=== PATIENT | male | born 1935 | race Caucasian/White ===

== ENCOUNTER → 2017-03-22 | Outpatient (CLI) | payer OTHER | LOC: BHFA 13:00 | PROVIDERS: ATTEND Internal Medicine Cardiovascular Disease | DX: R06.02 Shortness of breath (principal); I73.9 Peripheral vascular disease, unspecified; I11.9 Hypertensive heart disease without heart failure ==

== ENCOUNTER → 2017-03-29 | Outpatient (CLI) | payer OTHER | LOC: BHFA 14:00 | PROVIDERS: ATTEND Internal Medicine Cardiovascular Disease | DX: R06.00 Dyspnea, unspecified (principal); R94.31 Abnormal electrocardiogram [ECG] [EKG] ==

== ENCOUNTER 2017-04-01 09:29 | Day surgery (SDC) | payer OTHER ==
[2017-04-01] MEDS ORDERED: NS 500 ML IV ONE (09:30)
[2017-04-01] MEDS ORDERED: fentaNYL 100 MCG/2 ML INJ IVP ONE (09:30)
[2017-04-01] MEDS ORDERED: PROPOFOL 200 MG/20 ML VIAL IVP ONE (09:30)
[2017-04-01] MEDS ORDERED: BENZOCAINE UNIT DOSE SPRAY HURRICAINE MM ONE (09:30)
[2017-04-01] MEDS ORDERED: MIDAZOLAM 2 MG/2 ML VIAL IVP ONE (09:30)
[2017-04-01] MEDS ORDERED: ATROPINE SULFATE 1 MG/10 ML SYR ONE (09:33)
--- NOTE | 2017-04-01 09:56 | CPEKG ---
Heart Rate: 111 RR Interval: 541 QRSD Interval: 98 QT Interval: 324 QTC Interval: 441 QRS [place]: -43 T Wave [place]: -29 EKG Severity - ABNORMAL ECG - EKG Impression: ATRIAL FLUTTER, A-RATE 272 EKG Impression: LEFT AXIS DEVIATION EKG Impression: BORDERLINE T ABNORMALITIES, INFERIOR LEADS Electronically Signed By: Kal Perry 01-Apr-2017 19:25:36
[2017-04-01 10:30] LABS: ANION GAP 8 mEq/L (8-16); APTT 28.2 SEC (23.0-38.0); CALCIUM 8.9 mg/dL (8.5-10.4); CARBON DIOXIDE 22 mEq/l (22-31); CHLORIDE 106 mEq/L (97-110); CREATININE 1.7 mg/dL (0.7-1.3); GLOMERULAR FILTRATION RATE 39; GLUCOSE 124 mg/dL (70-100); INR 1.23 (0.83-1.16); MAGNESIUM 2.4 mg/dL (1.6-2.3); POTASSIUM 4.8 mEq/L (3.5-5.2); PROTIME(PATIENT) 15.5 SEC (12.0-15.0); SODIUM 136 mEq/L (134-144)
[2017-04-01] MEDS ORDERED: SUCCINYLCHOLINE CHLORIDE*ANESTHESIA ONLY*200 MG/10 ML SYR IVP ONE (11:10)
[2017-04-01] MEDS ORDERED: LIDOCAINE 1% 5 ML SDV ONE (11:10)
--- NOTE | 2017-04-01 11:31 | CPEKG ---
Heart Rate: 72 RR Interval: 833 P-R Interval: 240 QRSD Interval: 104 QT Interval: 400 QTC Interval: 438 P [place]: 5 QRS [place]: -30 T Wave [place]: 9 EKG Severity - ABNORMAL ECG - EKG Impression: SINUS RHYTHM EKG Impression: FIRST DEGREE AV BLOCK EKG Impression: LEFT AXIS DEVIATION EKG Impression: NONSPECIFIC INTERVENTRICULAR CONDUCTION DELAY EKG Impression: \ Electronically Signed By: Kal Perry 01-Apr-2017 19:20:54
--- NOTE | 2017-04-01 11:52 | CPR ---
[f rep st] NONINVASIVE CARDIAC PROCEDURE REPORT DATE OF PROCEDURE: 04/01/2017 PROCEDURE PERFORMED: Electrical cardioversion. INDICATION: Atrial flutter with rapid ventricular response. CONSENT: Signed. Risks, benefits, and alternatives discussed with patient. TECHNICAL DIFFICULTIES: None. MEDICATIONS USED: Propofol IV per Anesthesia Service in conjunction with transesophageal echo done immediately beforehand. DESCRIPTION OF PROCEDURE: A transesophageal echo immediately beforehand demonstrated no evidence of cardiac thrombi. The patient was initially in atrial flutter with a ventricular rate of 125 beats per minute and a blood pressure of 130/70. With adequate sedation and AP biphasic pads, he received a 225 joule synchronized shock, which converted him to sinus rhythm at 73 beats per minute, with a post cardioversion blood pressure of 103/65. He awoke from sedation with no new neurological defici ts. FINAL IMPRESSIONS: Successful cardioversion of atrial flutter to normal sinus rhythm with synchroni zed single 250 joule shock. COMPLICATIONS: None. /[id number]/MODL
--- NOTE | 2017-04-03 09:03 | ECHO ---
[id number] + + [address] : : [facility] [address] : : [phone] + Transesophageal Echocardiographic Report + ----+ :Name: JONN MCCRAY RStudy Date: 04/01/2017 10:27 AM : : Hospital Admission Number: [id number] Location: CVC: :: 1935 Gender: Male : :Age: 81 yrs Race: WH : :Reason For Study: Eval LV Fx : :History: Pre Cardioversion : + ----+ Left Ventricle Ejection Fraction = 45-50%. Right Ventricle The right ventricle is normal in size and function. Atria Doppler suggests left to right interatrial shunt. No left atrial mass or thrombus visualized. No thrombus is detected in the left atrial appendage. The velocities in the left atrial appendage were .40 cm/sec. Mitral Valve The mitral valve is normal in structure and function. There is no evidence of mitral valve prolapse. There is no mitral valve stenosis. There is mild mitral regurgitation. Tricuspid Valve Normal tricuspid valve. There is trace tricuspid regurgitation. Aortic Valve The aortic valve is trileaflet. There is no aortic stenosis. Trace aortic regurgitation. Pulmonic Valve The pulmonic valve is normal in structure and function. There is no pulmonic valvular regurgitation. Vessels Mild atherosclerotic plaque(s) in the descending aorta. Pericardium There is no pericardial effusion. Conclusion A 2D transesophageal echocardiogram with color flow Doppler was performed. 1)Low normal LV systolic function with a LVEF of 45-50%. 2)Moderate left atrial enlargement. 3)No clots in any four cardiac chambers including LA appendage. PW velocity in YUKI 60cm/sec. 4)Trileaflet AV with no and trivial AI noted. 5)Mild MR without MV prolapse. 6)Mild TR noted. 7)Small left to right shunting PFO seen by color Doppler. IV bubble study negative for early bubbles across septum. Final Reading Physician: Zach Romero electronically signed on 04/03/2017 09:01 AM Ordering Physician: Zach Romero Performed By: Zach Romero
== END 2017-04-01 13:27 | disposition home or self-care (01) ==
LOC: FCATH 09:29
PROVIDERS: ATTEND Internal Medicine Cardiovascular Disease
DX: I48.92 Unspecified atrial flutter (principal); I11.9 Hypertensive heart disease without heart failure; I73.9 Peripheral vascular disease, unspecified; E11.9 Type 2 diabetes mellitus without complications
CPT/HCPCS: J0330; J0461; J2704

== ENCOUNTER → 2017-04-04 | Outpatient (CLI) | payer OTHER | LOC: BHLMT 13:00 | PROVIDERS: ATTEND Internal Medicine Cardiovascular Disease | DX: I48.92 Unspecified atrial flutter (principal) | CPT/HCPCS: 78452; 93017; A9500; J2785 ==

== ENCOUNTER → 2017-04-08 | Outpatient (CLI) | payer OTHER | LOC: BHFA 10:00 | PROVIDERS: ATTEND Internal Medicine Cardiovascular Disease | DX: R06.02 Shortness of breath (principal); I48.92 Unspecified atrial flutter; R73.9 Hyperglycemia, unspecified; N18.9 Chronic kidney disease, unspecified; R94.30 Abnormal result of cardiovascular function study, unspecified ==

== ENCOUNTER 2017-04-15 07:54 | Observation (INO) | payer OTHER ==
[2017-04-15] MEDS ORDERED: DIAZEPAM 5 MG TAB PO ONE (08:02)
[2017-04-15] MEDS ORDERED: ASPIRIN EC 325 MG TAB PO ONE (08:02)
[2017-04-15] MEDS ORDERED: NS 1,000 ML IV ONE (08:02)
[2017-04-15] MEDS ORDERED: FAMOTIDINE 20 MG TAB PO ONE (08:02)
[2017-04-15] MEDS ORDERED: diphenhydrAMINE 25 MG CAP PO ONE (08:02)
--- NOTE | 2017-04-15 08:47 | CPEKG ---
Heart Rate: 63 RR Interval: 952 P-R Interval: 232 QRSD Interval: 116 QT Interval: 428 QTC Interval: 439 P [place]: 11 QRS [place]: -24 T Wave [place]: 12 EKG Severity - ABNORMAL ECG - EKG Impression: SINUS RHYTHM EKG Impression: FIRST DEGREE AV BLOCK EKG Impression: NONSPECIFIC INTRAVENTRICULAR CONDUCTION DELAY Electronically Signed By: Annel Mcconnell 15-Apr-2017 16:42:33
[2017-04-15 09:09] LABS: % IMMATURE GRANULYOCYTES 0.5 % (0.0-1.1); ABSOLUTE IMMATURE GRANULOCYTES 0.04 10^3/uL (0.00-0.10); ADD DIFF? NO; ADD MORPH? NO; ADD SCAN? NO; ATYPICAL LYMPHOCYTE FLAG 0 (0-99); FRAGMENT RBC FLAG 0 (0-99); HEMATOCRIT 39.8 % (40.0-51.0); HEMOGLOBIN 13.9 g/dL (13.7-17.5); LEFT SHIFT FLG 0 (0-99); LIPEMIA HEMOLYSIS FLAG 90 (0-99); MEAN CELL HEMOGLOBIN 31.6 pg (27.9-34.1); MEAN CELL HEMOGLOBIN CONCENTR. 34.9 g/dL (32.4-36.7); MEAN CELL VOLUME 90.5 fL (81.5-99.8); PLATELET CLUMPS FLAG 0 (0-99); PLATELET COUNT 178 10^3/uL (150-400)
[2017-04-15 09:24] LABS: INR 1.05 (0.83-1.16); PROTIME(PATIENT) 13.6 SEC (12.0-15.0)
[2017-04-15 09:30] LABS: ANION GAP 9 mEq/L (8-16); CALCIUM 9.3 mg/dL (8.5-10.4); CARBON DIOXIDE 24 mEq/l (22-31); CHLORIDE 104 mEq/L (97-110); CHOLESTEROL 105 mg/dL (140-220); CREATININE 1.4 mg/dL (0.7-1.3); GLOMERULAR FILTRATION RATE 49; GLUCOSE 100 mg/dL (70-100); HIGH DENSITY LIPOPROTEIN 35 mg/dL (40-65); LDL/HDL RATIO 1.23 RATIO (1.00-3.64); LOW DENSITY LIPOPROTEIN 43 mg/dL (80-100); MAGNESIUM 2.4 mg/dL (1.6-2.3); NON-HIGH DENSITY LIPOPROTEIN 70 mg/dL (90-129); POTASSIUM 4.4 mEq/L (3.5-5.2); SODIUM 137 mEq/L (134-144); TRIGLYCERIDE 138 mg/dL (40-150); VERY LOW DENSITY LIPOPROTEINS 27 mg/dL (8-25)
[2017-04-15] MEDS ORDERED: LIDOCAINE 1% 30 ML SDV ONE (09:36)
[2017-04-15] MEDS ORDERED: fentaNYL 100 MCG/2 ML INJ ONE (09:37)
[2017-04-15] MEDS ORDERED: IOPAMIDOL (ISOVUE-370) 150 ML BTL IV ONE (09:37)
[2017-04-15] MEDS ORDERED: MIDAZOLAM 2 MG/2 ML VIAL ONE (09:37)
[2017-04-15] MEDS ORDERED: IOPAMIDOL (ISOVUE-300) 150 ML BTL ONE (09:51)
[2017-04-15] MEDS ORDERED: ADENOSINE 90 MG/30 ML VIAL IV ONE (10:34)
[2017-04-15] MEDS ORDERED: BIVALIRUDIN 250 MG/5 ML VIAL IV ONE (10:34)
[2017-04-15] MEDS ORDERED: ONDANSETRON 4 MG/2 ML VIAL IVP PRN (12:13)
[2017-04-15] MEDS ORDERED: OXYCODONE/APAP 5/325 TAB PO PRN (12:13)
[2017-04-15] MEDS ORDERED: HYDROCODONE/APAP 5/325 TAB PO PRN (12:13)
[2017-04-15] MEDS ORDERED: ATROPINE SULFATE 1 MG/10 ML SYR IVP PRN (12:13)
[2017-04-15] MEDS ORDERED: NITROGLYCERIN 0.4 MG BTL SL PRN (12:13)
--- NOTE | 2017-04-15 13:06 | CPIP ---
[f rep st] INVASIVE CARDIAC PROCEDURE DATE OF PROCEDURE: 04/15/2017 PROCEDURES: 1. Coronary angiography. 2. Left ventricular end-diastolic pressure. 3. Fractional flow reserve of left anterior descending coronary artery. 4. Abdominal aortography. 5. Left lower extremity angiography via contralateral approach with catheter placed in the left sup erficial femoral artery. 6. Right lower extremity angiography via ipsilateral approach with catheter placed in the right com mon iliac artery. INDICATION: 1. Class 2 dyspnea on exertion concerning for an anginal equivalent. 2. High risk abnormal nuclear stress test. 3. Lifestyle limiting leg pain consistent with claudication. ACCESS: Patient was prepped and draped in sterile fashion. 1% lidocaine was used to anesthetize th e right inguinal region. A 6-[place] introducer sheath was placed selectively into the right common femoral artery via a modified Seldinger technique. CORONARY ANGIOGRAPHY: A 6-[place] JL4 was advanced to left main coronary artery and images obtained. The left main coronary artery bifurcated into LAD and circumflex coronary arteries. The left main coronary artery had a distal 10% stenosis present. The left anterior descending coronary artery ga ve rise to 3 diagonal branches. The left anterior descending coronary artery is diffusely diseased. In the proximal segment of the left anterior descending coronary artery, there was a segmental 20% stenosis present. In the mid one segment of the left anterior descending coronary artery, there wa s a discrete 60% to 70% stenosis present. In the mid 2 segment of the left anterior descending china nary artery, there is a discrete 50% stenosis present. The diagonal arteries were free of any signi ficant disease. The circumflex coronary artery was a large vessel and was dominant. The circumflex coronary artery had mild diffuse disease throughout. There was no stenosis greater than 20%. The first OM artery was a large vessel. The first OM artery had a proximal 40% stenosis present. A 6-F rench JR4 was advanced to the right coronary artery and images obtained. The right coronary artery is nondominant. The right coronary artery had a long segmental 85% stenosis in the midvessel. Left ventricular end-diastolic pressure catheter was placed in the left ventricle and pressure obtained. LEFT VENTRICULAR END-DIASTOLIC PRESSURE: 17 mmHg. There was no significant gradient on pullback. LEFT VENTRICULOGRAPHY: Not performed in an effort to spare contrast. FFR OF LEFT ANTERIOR DESCENDING CORONARY ARTERY: A 6-[place] JL4 was advanced to the left main coron trixie artery and images obtained. Angiography confirmed the presence of intermediate to high-grade di sease involving the mid left anterior descending coronary artery. An FFR wire was placed in the dis rick vessel and position verified by angiography. IV adenosine was infused and FFR obtained. The FF R was 0.88 indicating no flow limitation. The FFR wire was then withdrawn back to the guide cathete r. The FFR returned at 1.02 indicating no significant drift. ABDOMINAL AORTOGRAPHY: A 6-[place] pigtail catheter was placed in the abdominal aorta and position v erified by angiography. Images were obtained via power injection through the [employer] system. There was a single left renal artery and a single right renal artery. The left renal artery appeared to h ave a proximal 20% stenosis present. The right renal artery is free of any significant disease. Th e distal abdominal aorta was tortuous and had mild diffuse disease throughout. There was no stenosi s greater than 15%. The distal abdominal aorta was then bifurcated into the left and right common iliac arteries. The l eft common iliac artery was ectatic. The left common iliac artery then bifurcated into the internal and external iliac arteries. The left internal and external iliac arteries appeared free of any si gnificant disease. The left external iliac artery then turned into the common femoral artery. The common femoral artery is free of any significant disease. The common femoral artery then bifurcated into the superficial femoral artery and profunda femoral arteries. A Contra II catheter was advanc ed to the left common iliac artery and a glidewire advanced into the left superficial femoral artery . The Contra II catheter was then exchanged for a straight flush catheter. The straight flush cath eter was used to image the distal superficial femoral artery, the popliteal artery as well as the ru noff below the knee. The left superficial femoral artery had mild luminal regularities throughout. There was no stenosis greater than 10%. The left superficial femoral artery then turned into the p opliteal artery. The popliteal artery had a discrete 30% stenosis present. Below the knee, there i s 3-vessel runoff. RIGHT LOWER EXTREMITY ANGIOGRAPHY VIA IPSILATERAL APPROACH WITH CATHETER PLACED IN THE RIGHT COMMON ILIAC ARTERY: The straight flush catheter was withdrawn into the right common iliac artery and imag es obtained via hand injection. The right common iliac artery bifurcated into the internal and exte rnal iliac arteries. The right common iliac artery had mild luminal irregularities throughout. The re was no stenosis greater than 10%. The right internal iliac artery had a discrete 30% stenosis in the proximal segment. The right external iliac artery was free of any significant disease. The ri ght external iliac artery then turned into the common femoral artery. The common femoral artery had a single discrete 20% stenosis present. The remainder of the right lower extremity angiography was performed via hand injection through the 6-[place] introducer sheath placed in the common femoral ar marcio. The right common femoral artery bifurcated into the superficial femoral artery and profunda f emoral arteries. The profunda femoral artery is free of any significant disease. The right superfi cial femoral artery had mild diffuse disease throughout. There was no stenosis greater than 20%. T he right superficial femoral artery then turned into the popliteal artery. The popliteal artery was free of any significant disease. Below the knee, there is 3-vessel runoff. COMPLICATIONS: None. CONCLUSION: 1. 2-vessel coronary artery disease involving the left anterior descending coronary artery and a no ndominant right coronary artery. Fractional flow reserve of the left anterior descending coronary a rtery was 0.88 indicating no flow limitation. 2. Mild peripheral vascular disease without flow limitation. /[id number]/MODL
[2017-04-15] MEDS: CARVEDILOL 25 MG TAB PO SCH (18:03)
[2017-04-15] MEDS ORDERED: ATORVASTATIN CALCIUM 40 MG TAB PO SCH (21:00)
[2017-04-15] MEDS ORDERED: INSULIN GLARGINE 100 UNITS/ML SYRINGE SC SCH (21:00)
[2017-04-15] MEDS ORDERED: LOSARTAN POTASSIUM 50 MG TAB PO SCH (21:00)
[2017-04-15] MEDS: glipiZIDE 10 MG TAB PO SCH (21:23)
[2017-04-16] MEDS ORDERED: LEVOTHYROXINE 50 MCG TAB PO SCH (06:00)
[2017-04-16 06:04] VITALS: RESP 19
[2017-04-16 07:53] VITALS: BP 115/58; PULSE 63; TEMP 98; O2SAT 97
[2017-04-16] MEDS: glipiZIDE 10 MG TAB PO SCH (08:43)
[2017-04-16] MEDS: CARVEDILOL 25 MG TAB PO SCH (08:44)
[2017-04-16] MEDS ORDERED: ASPIRIN 81 MG CHEWABLE TAB PO SCH (09:00)
[2017-04-16] MEDS ORDERED: CHOLECALCIFEROL VIT D3 1,000 UNITS TAB PO SCH (09:00)
[2017-04-16] MEDS ORDERED: ASCORBIC ACID 500 MG TAB PO SCH (09:00)
[2017-04-16] MEDS ORDERED: MULTIVITAMINS 1 EACH TAB PO SCH (09:00)
[2017-04-16] MEDS ORDERED: SPIRONOLACTONE 25 MG TAB PO SCH (09:00)
[2017-04-16] MEDS ORDERED: LIRAGLUTIDE 1.8 MG SQ SCH (09:00)
[2017-04-16] MEDS ORDERED: DILTIAZEM CD 180 MG CAP PO SCH (09:00)
[2017-04-16] MEDS ORDERED: CYANO/VITAMIN B12 1000 MCG TAB PO SCH (09:00)
[2017-04-16] MEDS ORDERED: NON-FORMULARY NEW DRUG (Diltiazem Hcl [Cartia Xt 180mg] 180 MG) PO SCH (09:00)
[2017-04-16 09:55] LABS: % IMMATURE GRANULYOCYTES 0.5 % (0.0-1.1); ABSOLUTE IMMATURE GRANULOCYTES 0.05 10^3/uL (0.00-0.10); ADD DIFF? NO; ADD MORPH? NO; ADD SCAN? NO; ATYPICAL LYMPHOCYTE FLAG 0 (0-99); FRAGMENT RBC FLAG 0 (0-99); HEMATOCRIT 34.9 % (40.0-51.0); HEMOGLOBIN 11.7 g/dL (13.7-17.5); LEFT SHIFT FLG 0 (0-99); LIPEMIA HEMOLYSIS FLAG 80 (0-99); MEAN CELL HEMOGLOBIN 31.5 pg (27.9-34.1); MEAN CELL HEMOGLOBIN CONCENTR. 33.5 g/dL (32.4-36.7); MEAN CELL VOLUME 93.8 fL (81.5-99.8); PLATELET CLUMPS FLAG 0 (0-99); PLATELET COUNT 158 10^3/uL (150-400); RED BLOOD CELL COUNT 3.72 10^6/uL (4.40-6.38); RED CELL DISTRIBUTION WIDTH 14.4 % (11.5-15.2)
[2017-04-16 11:44] LABS: ANION GAP 7 mEq/L (8-16); CALCIUM 8.4 mg/dL (8.5-10.4); CARBON DIOXIDE 23 mEq/l (22-31); CHLORIDE 102 mEq/L (97-110); CREATININE 1.3 mg/dL (0.7-1.3); GLOMERULAR FILTRATION RATE 53; GLUCOSE 153 mg/dL (70-100); POTASSIUM 4.5 mEq/L (3.5-5.2); SODIUM 132 mEq/L (134-144)
[2017-04-17] MEDS ORDERED: LIRAGLUTIDE 1.8 MG SQ SCH (09:00)
--- NOTE | 2017-04-17 11:27 | GDS ---
[f rep st] DISCHARGE SUMMARY DISCHARGE DIAGNOSES: 1. Abnormal nuclear stress test, status post left heart catheterization which showed no obstructive coronary disease. 2. Claudication-like symptoms without evidence of obstructive disease based on peripheral angiograp hy. 3. Type 2 diabetes mellitus. 4. Obesity with a BMI of 41. 5. Chronic kidney disease with baseline creatinine 1.7. 6. Spinal stenosis. 7. Hypertension. 8. Systolic congestive heart failure with now likely nonischemic cardiomyopathy, with an EF of 47%. 9. Atrial flutter with recent cardioversion, currently in sinus rhythm at time of discharge. 10. Groin hematoma, without overt bleeding on day of discharge. PROCEDURES: Coronary angiography with an LVEDP, fractional flow reserve of LAD, abdominal aortograp hy, and left and right lower extremity angiography. Findings of left main with distal 10% stenosis, LAD with 3 diagonal branches. In the proximal LAD there was a 20% segmental stenosis. In the mid 1 segment of the LAD there was a 60% to 70% stenosis. In the mid 2 segment of the LAD there was a d iscrete 50% stenosis. The left circumflex had mild diffuse disease throughout it with no stenosis g reater than 20%. The first OM had a proximal 40% stenosis. The RCA had a long segmental 85% stenos is in the mid vessel. LVEDP was obtained and was 17 mmHg. No LV gram was done. FFR of the mid LAD was 0.88, indicating no flow limitation. Abdominal angiography showed left renal artery with proxi mal 20% stenosis. Distal abdominal aorta was tortuous and mild diffuse disease throughout. There w as mild peripheral vascular disease with no stenosis greater than 20% to 30%. BRIEF HISTORY: Please see dictated H and P by Dr. Romero for complete details. In brief, the patien t is an 81-year-old male with hypertension, type 2 diabetes mellitus, spinal stenosis, chronic kidne y disease, recurrent atrial flutter, systolic CHF with an EF of 47%. He had a Lexiscan stress test with inferior and anterior ischemia. He also notes symptoms of tightness in his legs with exertion at 0.5 blocks, with right greater than left leg symptoms. He proceeded to angiography for further e valuation. HOSPITAL COURSE BY PROBLEM: 1. Abnormal nuclear stress test. He had no flow-limiting disease based on heart catheterization. 2. Concern for peripheral vascular disease due to claudication. There is no evidence of flow-limit ing disease in his lower extremities. 3. Chronic kidney disease. His creatinine on day of discharge was 1.3 after IV hydration. 4. Dyslipidemia. LDL is 43 on treatment. 5. Type 2 diabetes mellitus. His blood sugars have been well controlled. 6. Groin hematoma. His hemoglobin was 11.7 on day of discharge, down from 13.9 on the day of admis mindy. This is likely related to hydration as opposed to acute blood loss. PHYSICAL EXAMINATION: VITAL SIGNS: On day of discharge, blood pressure of 115/58, heart rate 63, r espirations 19, O2 saturation 97% on room air. GENERAL: He is a very pleasant male in no apparent distress. EYES: PERRL. HEART: Regular rate and rhythm. LUNGS: Clear to auscultation. EXTREMIT IES: Right groin site with severe ecchymoses into his scrotum. LABORATORY DATA: CBC with WBC 9.16, hemoglobin 11.7, hematocrit 34.9, platelet count 158. BMP with sodium 132, potassium 4.5, chloride 102, CO2 23, BUN 28, creatinine 1.3, glucose 153. Total choles terol 105, LDL 43, HDL of 35, triglycerides 138. RESULTS PENDING: None. DIET: Cardiac and diabetic diet recommended. ACTIVITY: Groin precautions were reviewed. DISCHARGE MEDICATIONS: Please see med reconciliation for complete details. He is being discharged on his home vitamin C, diltiazem, vitamin B12, vitamin D3, carvedilol, PreserVision, atorvastatin, a spirin, apixaban, levothyroxine, insulin, insulin lispro and insulin glargine, glipizide, torsemide, spironolactone, multivitamin, losartan, and Victoza. DISCHARGE INSTRUCTIONS: 1. Groin precautions for 1 week. 2. Follow up with Dr. Romero as scheduled in clinic. /[id number]/MODL
== END 2017-04-16 15:06 | disposition home or self-care (01) ==
LOC: FCATH 07:54 → F2W 15:18
PROVIDERS: ADMIT Internal Medicine Cardiovascular Disease; ATTEND Internal Medicine Cardiovascular Disease
PROC: 4A1335C Monitoring of Arterial Flow, Coronary, Percutaneous Approach (ICD-10-PCS; principal; 2017-04-15)
PROC: B2151ZZ Fluoroscopy of Left Heart using Low Osmolar Contrast (ICD-10-PCS; principal; 2017-04-15)
PROC: 04HL33Z Insertion of Infusion Device into Left Femoral Artery, Percutaneous Approach (ICD-10-PCS; principal; 2017-04-15)
PROC: B2111ZZ Fluoroscopy of Multiple Coronary Arteries using Low Osmolar Contrast (ICD-10-PCS; principal; 2017-04-15)
PROC: 04HC33Z Insertion of Infusion Device into Right Common Iliac Artery, Percutaneous Approach (ICD-10-PCS; principal; 2017-04-15)
PROC: B41GYZZ Fluoroscopy of Left Lower Extremity Arteries using Other Contrast (ICD-10-PCS; principal; 2017-04-15)
PROC: B41FYZZ Fluoroscopy of Right Lower Extremity Arteries using Other Contrast (ICD-10-PCS; principal; 2017-04-15)
PROC: 4A023N7 Measurement of Cardiac Sampling and Pressure, Left Heart, Percutaneous Approach (ICD-10-PCS; principal; 2017-04-15)
DX: R94.30 Abnormal result of cardiovascular function study, unspecified (principal); M79.604 Pain in right leg; M79.605 Pain in left leg; I25.10 Atherosclerotic heart disease of native coronary artery without angina pectoris; I97.630 Postprocedural hematoma of a circulatory system organ or structure following a cardiac catheterization; R06.02 Shortness of breath; E11.22 Type 2 diabetes mellitus with diabetic chronic kidney disease; N18.9 Chronic kidney disease, unspecified; I70.1 Atherosclerosis of renal artery; M48.00 Spinal stenosis, site unspecified; I13.0 Hypertensive heart and chronic kidney disease with heart failure and stage 1 through stage 4 chronic kidney disease, or unspecified chronic kidney disease; I50.22 Chronic systolic (congestive) heart failure; I48.92 Unspecified atrial flutter; E78.5 Hyperlipidemia, unspecified; E66.9 Obesity, unspecified; Z68.41 Body mass index [BMI] 40.0-44.9, adult; Z79.4 Long term (current) use of insulin
CPT/HCPCS: 75630; 75716; 93005; 93458; 93571; C1769; C1887; J0153; J0583; J1644; J1815; J2250; J3010; Q9967; J0461

== ENCOUNTER → 2017-05-01 | Outpatient (CLI) | payer OTHER ==
[2017-05-01 18:09] LABS: ALBUMIN 4.2 g/dL (3.5-5.0); BILIRUBIN,TOTAL 1.1 mg/dL (0.1-1.4); BILIRUBIN-CONJUGATED 0.3 mg/dL (0.0-0.5); BILIRUBIN-UNCONJUGATED 0.8 mg/dL (0.0-1.1); TOTAL PROTEIN 6.6 g/dL (6.3-8.2)
== END ==
LOC: FLAB 17:23
PROVIDERS: ATTEND Internal Medicine Cardiovascular Disease
DX: I48.92 Unspecified atrial flutter (principal)

== ENCOUNTER 2017-05-16 14:48 | Day surgery (SDC) | payer OTHER ==
[2017-05-16] MEDS ORDERED: fentaNYL 100 MCG/2 ML INJ IVP ONE (14:58)
[2017-05-16] MEDS ORDERED: PROPOFOL 200 MG/20 ML VIAL IVP ONE (14:58)
[2017-05-16] MEDS ORDERED: BENZOCAINE UNIT DOSE SPRAY HURRICAINE MM ONE (14:58)
[2017-05-16] MEDS ORDERED: MIDAZOLAM 2 MG/2 ML VIAL IVP ONE (14:58)
[2017-05-16] MEDS ORDERED: NS 500 ML IV ONE (14:58)
[2017-05-16] MEDS ORDERED: ATROPINE SULFATE 1 MG/10 ML SYR ONE (15:27)
[2017-05-16] MEDS ORDERED: METOCLOPRAMIDE 10 MG/2 ML VIAL ONE (15:30)
[2017-05-16 15:39] LABS: INR 1.24 (0.83-1.16); PROTIME(PATIENT) 15.6 SEC (12.0-15.0)
[2017-05-16 15:40] LABS: APTT 28.2 SEC (23.0-38.0)
[2017-05-16 15:49] LABS: ANION GAP 12 mEq/L (8-16); CALCIUM 9.2 mg/dL (8.5-10.4); CARBON DIOXIDE 20 mEq/l (22-31); CHLORIDE 104 mEq/L (97-110); CREATININE 1.7 mg/dL (0.7-1.3); GLOMERULAR FILTRATION RATE 39; GLUCOSE 61 mg/dL (70-100); MAGNESIUM 2.5 mg/dL (1.6-2.3); POTASSIUM 4.2 mEq/L (3.5-5.2); SODIUM 136 mEq/L (134-144)
--- NOTE | 2017-05-16 16:02 | CPEKG ---
Heart Rate: 63 RR Interval: 952 P-R Interval: 252 QRSD Interval: 114 QT Interval: 440 QTC Interval: 451 P [place]: -1 QRS [place]: -26 T Wave [place]: 50 EKG Severity - ABNORMAL ECG - EKG Impression: SINUS RHYTHM EKG Impression: FIRST DEGREE AV BLOCK EKG Impression: NONSPECIFIC INTRAVENTRICULAR CONDUCTION DELAY Electronically Signed By: Diego Merchant 16-May-2017 17:11:04
--- NOTE | 2017-05-17 07:55 | EPPROC ---
Electrophysiology Procedure Note: Procedure: CV Indication: Symptomatic AF Procedure: Pt underwent SHELLEY and no LA clots were found. (dictated separately). Pt was then sedated further by anesthesiologist. Once sedated, pt underwent synchronized DCCV at 200J. Pt successfully converted to sinus rhythm. Conclusion: Successful DCCV Patient Problems: Problems Problem Status Onset CHF (congestive heart failure) Acute
== END 2017-05-16 18:29 | disposition home or self-care (01) ==
LOC: FCATH 14:48
PROVIDERS: ATTEND Internal Medicine Cardiovascular Disease
PROC: 5A2204Z Restoration of Cardiac Rhythm, Single (ICD-10-PCS; principal; 2017-05-16)
PROC: B245ZZ4 Ultrasonography of Left Heart, Transesophageal (ICD-10-PCS; principal; 2017-05-16)
DX: I48.92 Unspecified atrial flutter (principal); I25.10 Atherosclerotic heart disease of native coronary artery without angina pectoris; I10 Essential (primary) hypertension; I42.9 Cardiomyopathy, unspecified
CPT/HCPCS: J0461; J2250; J2704; J2765

== ENCOUNTER → 2017-07-04 | Outpatient (CLI) | payer OTHER | LOC: BHFA 13:00 | PROVIDERS: ATTEND Internal Medicine Cardiovascular Disease | DX: Z79.899 Other long term (current) drug therapy (principal) ==

== ENCOUNTER 2017-07-22 06:49 | Observation (INO) | payer OTHER ==
[2017-07-22] MEDS ORDERED: NS 1,000 ML IV ONE (06:50)
[2017-07-22] MEDS ORDERED: MIDAZOLAM 2 MG/2 ML VIAL IVP ONE (06:50)
--- NOTE | 2017-07-22 07:28 | CPEKG ---
Heart Rate: 115 RR Interval: 522 QRSD Interval: 120 QT Interval: 344 QTC Interval: 476 QRS [place]: -30 T Wave [place]: 71 EKG Severity - ABNORMAL ECG - EKG Impression: A-FLUTTER W/ PREDOM 2:1 AV BLOCK, A-RATE 254 EKG Impression: NONSPECIFIC INTRAVENTRICULAR CONDUCTION DELAY Electronically Signed By: Diego Merchant 22-Jul-2017 08:04:05
[2017-07-22] MEDS ORDERED: LIDOCAINE 1% 300 MG/30 ML SDV ONE (07:31)
[2017-07-22] MEDS ORDERED: HEPARIN 10,000 UNIT/10 ML MDV ONE (07:32)
[2017-07-22] MEDS ORDERED: BUPIVACAINE 0.5% 30 ML SDV ONE (07:32)
[2017-07-22] MEDS ORDERED: ISOPROTERENOL HCL/D5W 0.2 MG/50 ML BAG IV ONE (07:32)
[2017-07-22 07:46] LABS: % IMMATURE GRANULYOCYTES 1.2 % (0.0-1.1); ABSOLUTE IMMATURE GRANULOCYTES 0.08 10^3/uL (0.00-0.10); ADD DIFF? NO; ADD MORPH? NO; ADD SCAN? NO; ATYPICAL LYMPHOCYTE FLAG 10 (0-99); FRAGMENT RBC FLAG 0 (0-99); HEMATOCRIT 37.3 % (40.0-51.0); HEMOGLOBIN 12.7 g/dL (13.7-17.5); LEFT SHIFT FLG 10 (0-99); LIPEMIA HEMOLYSIS FLAG 90 (0-99); MEAN CELL HEMOGLOBIN 32.9 pg (27.9-34.1); MEAN CELL VOLUME 96.6 fL (81.5-99.8); MEAN PLATELET VOLUME 9.8 fL (8.7-11.7); PLATELET CLUMPS FLAG 0 (0-99); PLATELET COUNT 153 10^3/uL (150-400); RED BLOOD CELL COUNT 3.86 10^6/uL (4.40-6.38); RED CELL DISTRIBUTION WIDTH 12.9 % (11.5-15.2)
[2017-07-22 07:56] LABS: INR 1.07 (0.83-1.16); PROTIME(PATIENT) 13.8 SEC (12.0-15.0)
[2017-07-22 07:57] LABS: ANION GAP 10 mEq/L (8-16); APTT 33.3 SEC (23.0-38.0); CARBON DIOXIDE 22 mEq/l (22-31); CHLORIDE 105 mEq/L (97-110); CREATININE 1.7 mg/dL (0.7-1.3); GLOMERULAR FILTRATION RATE 39; GLUCOSE 116 mg/dL (70-100); MAGNESIUM 2.3 mg/dL (1.6-2.3); POTASSIUM 4.4 mEq/L (3.5-5.2); SODIUM 137 mEq/L (134-144)
--- NOTE | 2017-07-22 08:24 | PDANEPAE ---
ANE Past Medical History - Pulmonary History Hx Oxygen in Use at Home: No Hx Sleep Apnea: Yes - Endocrine History Hx Diabetes: Yes - Chronic Pain History Chronic Pain: No ANE Patient History - Allergies Allergies/Adverse Reactions: hydrocodone Allergy (Verified 04/01/17 10:54) Vomiting/Nausea - Home Medications Home Medications: Apixaban [Eliquis] 2.5 mg PO BID 04/01/17 [Last Taken 07/19/17 21:00] Aspirin [Aspirin 81mg (*)] 81 mg PO DAILY 04/01/17 [Last Taken 07/21/17] Atorvastatin Calcium [Lipitor 40 mg (*)] 40 mg PO HS 04/01/17 [Last Taken ] Carvedilol [Coreg (*)] 25 mg PO BIDMEAL 04/01/17 [Last Taken 07/21/17 21:00] Cholecalciferol Vit D3 [Vitamin D3 (*)] 1,000 units PO DAILY 04/01/17 [Last Taken 07/21/17] Cyanocobalamin [Vitamin B12 (*)] 1,000 mcg PO DAILY 04/01/17 [Last Taken ] Diltiazem HCl [Cartia XT 180mg] 180 mg PO DAILY 04/01/17 [Last Taken 07/21/17] Herbals/Supplements -Info Only 1 ea PO DAILY 04/01/17 [Last Taken Unknown] Insulin Glargine [Lantus 100 UNITS/ML (*)] 40 units SC HS 04/01/17 [Last Taken 07/21/17 30 units] Levothyroxine [Synthroid 50 mcg (*)] 50 mcg PO DAILY06 04/01/17 [Last Taken ] Liraglutide [Victoza 3-Ronald] 1.8 mg SQ HS 04/01/17 [Last Taken 07/20/17] Losartan Potassium [Cozaar 50 mg (*)] 50 mg PO DAILY 04/01/17 [Last Taken ] Spironolactone [Aldactone 25 MG (*)] 25 mg PO DAILY 04/01/17 [Last Taken ] Torsemide [Demadex] 20 mg PO DAILY 04/01/17 [Last Taken 07/21/17] glipiZIDE [Glipizide] 10 mg PO DAILY 04/01/17 [Last Taken 07/21/17] C/E/Zn/Cu/OM3/DHA/EPA/LUT/ZEAX [Preservision Areds 2 Softgel] 1 - 2 each PO BID 04/15/17 [Last Taken 07/21/17 21:00] Multivitamins [Multivitamin (*)] 1 each PO DAILY 04/15/17 [Last Taken 07/21/17] Amiodarone HCl [Pacerone (*)] 200 mg PO DAILY 05/16/17 [Last Taken 07/21/17] Enoxaparin [Lovenox 100 MG (*)] 100 mg SQ 1000,2200 07/22/17 [Last Taken 22:00] - Smoking Hx Smoking Status: Never smoked ANE Labs/Vital Signs - Labs Result Diagrams: 07/22/17 07:35 07/22/17 07:35 - Vital Signs Height: 170 cm Weight: 115.2 kg ANE Physical Exam - Airway Neck exam: spinal fusion, increased neck circumference, short neck Mallampati Score: Class 3 Mouth exam: poor dentition, lott - Pulmonary Pulmonary: reduced air movement - Cardiovascular Cardiovascular: irregularly irregular - ASA Status ASA Status: III ANE Anesthesia Plan Anesthesia Plan: general endotracheal anesthesia
[2017-07-22] MEDS ORDERED: PROPOFOL 200 MG/20 ML VIAL ONE (08:40)
[2017-07-22] MEDS ORDERED: LIDOCAINE 2% 100 MG/5 ML SYR ONE (08:40)
[2017-07-22] MEDS ORDERED: ROCURONIUM 50 MG/5 ML VIAL ONE (08:40)
[2017-07-22] MEDS ORDERED: fentaNYL 100 MCG/2 ML INJ ONE (08:40)
--- NOTE | 2017-07-22 08:43 | PDHPUP ---
History & Physical Update H&P update statement: This history and physical update is based on an assessment of the patient which was completed after admission or registration (within 24 hours), but prior to the surgery/procedure. H&P update: H&P reviewed & patient examined, no change in patient's condition since H&P completed
[2017-07-22] MEDS ORDERED: PHENYLEPHRINE 10 MG/ML SDV ONE (08:47)
[2017-07-22] MEDS ORDERED: ACETAMINOPHEN 325 MG TAB PO PRN (11:22)
[2017-07-22] MEDS ORDERED: ONDANSETRON 4 MG/2 ML VIAL IVP PRN ×2 (11:22→11:42)
[2017-07-22] MEDS ORDERED: PROTAMINE SULFATE 50 MG/5 ML VIAL IVP ONE (11:26)
--- NOTE | 2017-07-22 11:32 | EPPROC ---
Electrophysiology Procedure Note: ELECTROPHYSIOLOGIC STUDY AND CATHETER MEDIATED ABLATION FOR SUBEUSTACHIAN ISTHMUS DEPENDENT COUNTERCLOCKWISE ATRIAL FLUTTER: INDICATION: Recurrent atrial flutter with nonischemic cardiomyopathy Failed DCCV and amiodarone Also has documented AFIB this will be treated with amiodarone post ablation, and if recurrent, consider BiV PM and AV node ablation PROCEDURES PERFORMED: 69831-54 EP evaluation with RA/RV/LA pace/record, with arrhythmia induction 48477-60 EP evaluation with RA/RV pace record, insert/reposition catheter, with arrhythmia induction 88117 SVT ablation 42248 3D mapping Fluoroscopy Catheters & Anesthesia: The patient arrived in the Electrophysiology Laboratory in the fasting state. The right clavicular region, right groin, and left groin area were prepped and draped in the usual sterile manner. Anesthesiologist Dr. Marivel Dempsey administered general anesthesia. Appropriate non-invasive blood pressure, pulse oximetry and end-tidal CO2 monitoring was established. All catheters were placed percutaneously using the modified Seldinger technique , and advanced into position under fluoroscopic guidance. One #7 Australian deflectable octapolar electrode catheter was advanced to the His-bundle position via the R femoral vein and then into the CS. One # 7 [place] Halo catheter was inserted through the R femoral vein and was placed at the tricuspid annulus. Heparin was administered to keep ACT > 250 seconds. Programmed stimulation was performed from the right atrium, coronary sinus ( left atrium) and right ventricle. On arrival to the Electrophysiology Laboratory the patient was in atrial flutter , CL 240 ms. Entrainment mapping from lateral TA, septal TA, proximal CS and distal CS confirmed cavotricuspid isthmus dependent atrial flutter. In preparation for ablation of typical atrial flutter, a high-resolution 3D (3 dimensional) Carto electroanatomical map of the sub-Eustachian isthmus and right atrium was obtained during atrial flutter. For ablation of typical atrial flutter, one #8.5 Australian SR0 sheath was placed in the right atrium. A #8 [place] deflectable quadrapolar electrode catheter ( 2mm-5mm-2mm spacing) with 3.5 mm irrigated tip electrode and location sensor for the [employer] mapping system was inserted in the long sheath and advanced to the right atrium. Radiofrequency applications were applied between the tricuspid annulus at 0630 oclock as seen in the LAURA view and the inferior vena cava. 8 mm catheter had to be used in mid CT isthmus for better contact. This achieved termination of AFL followed by conduction block across the isthmus. Following ablation of the atrial flutter, programmed atrial stimulation was performe. No atrial arrhythmias were inducible post ablation. Post ablation, a high-resolution electroanatomical map of the sub-Eustachian isthmus was obtained during pacing of the posterolateral coronary sinus. This confirmed conduction block across the sub-Eustachian isthmus. Bidirectional block was also confirmed by pacing. The catheters were removed. Long sheath was changed to short 9Fr sheath. Protamine was administered. The patient was transferred to the cardiovascular holding area in stable condition. Vascular access sheaths were removed in the holding area. There were no apparent complications. CONCLUSIONS: 1. 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 2. Successful catheter mediated ablation of cavotricuspid isthmus achieving bi -directional conduction block across cavotricuspid isthmus. 3. No atrial arrhythmias inducible post ablation. 4. Continue amiodarone for atrial fibrillation. 5. No apparent complications. Patient Problems: Problems Problem Status Onset CHF (congestive heart failure) Acute
[2017-07-22] MEDS ORDERED: ATROPINE SULFATE 1 MG/10 ML SYR ONE (11:37)
[2017-07-22] MEDS ORDERED: NALOXONE HCL 0.4 MG/ML INJ IVP PRN (11:42)
[2017-07-22] MEDS ORDERED: fentaNYL 100 MCG/2 ML INJ IVP PRN (11:42)
--- NOTE | 2017-07-22 11:42 | POSTANESTH ---
Post Anesthetic Evaluation Cardiovascular Status: Normal, Stable, Similar to Pre-Op Cond Respiratory Status: Similar to Pre-op Cond. Level of Consciousness/Mental Status: Alert and Oriented Pain Control: Adequate, Prn Tx Ordered Nausea/Vomiting Control: Adequate, Prn Tx Ordered Complications Possibly Related to Anesthesia: None Noted
--- NOTE | 2017-07-22 11:55 | CPEKG ---
Heart Rate: 78 RR Interval: 769 P-R Interval: 244 QRSD Interval: 112 QT Interval: 412 QTC Interval: 470 P [place]: 64 QRS [place]: -17 T Wave [place]: 35 EKG Severity - ABNORMAL ECG - EKG Impression: SINUS RHYTHM EKG Impression: FIRST DEGREE AV BLOCK ,YUKI EKG Impression: NONSPECIFIC INTRAVENTRICULAR CONDUCTION DELAY Electronically Signed By: Apolinar Grajeda 22-Jul-2017 16:13:53
[2017-07-22 12:34] LABS: ANION GAP 7 mEq/L (8-16); CALCIUM 8.5 mg/dL (8.5-10.4); CARBON DIOXIDE 23 mEq/l (22-31); CHLORIDE 108 mEq/L (97-110); CREATININE 1.6 mg/dL (0.7-1.3); GLOMERULAR FILTRATION RATE 42; GLUCOSE 74 mg/dL (70-100); MAGNESIUM 2.4 mg/dL (1.6-2.3); POTASSIUM 4.1 mEq/L (3.5-5.2); SODIUM 138 mEq/L (134-144)
[2017-07-22] MEDS: CARVEDILOL 25 MG TAB PO SCH (18:03)
[2017-07-22] MEDS: ENOXAPARIN 80 MG/0.8 ML SYR SC SCH (19:33)
[2017-07-22] MEDS ORDERED: Liraglutide [Victoza 3-Pak] 1.8 MG SQ SCH (21:00)
[2017-07-22] MEDS ORDERED: INSULIN GLARGINE 100 UNITS/ML SYRINGE SC SCH (21:00)
[2017-07-22] MEDS ORDERED: ATORVASTATIN CALCIUM 40 MG TAB PO SCH (21:00)
[2017-07-23 03:45] VITALS: RESP 12
[2017-07-23 04:32] LABS: % IMMATURE GRANULYOCYTES 1.1 % (0.0-1.1); ABSOLUTE IMMATURE GRANULOCYTES 0.07 10^3/uL (0.00-0.10); ADD DIFF? NO; ADD MORPH? NO; ADD SCAN? NO; ATYPICAL LYMPHOCYTE FLAG 10 (0-99); FRAGMENT RBC FLAG 0 (0-99); HEMATOCRIT 33.4 % (40.0-51.0); HEMOGLOBIN 11.1 g/dL (13.7-17.5); LEFT SHIFT FLG 10 (0-99); LIPEMIA HEMOLYSIS FLAG 80 (0-99); MEAN CELL HEMOGLOBIN 32.7 pg (27.9-34.1); MEAN CELL HEMOGLOBIN CONCENTR. 33.2 g/dL (32.4-36.7); MEAN CELL VOLUME 98.5 fL (81.5-99.8); MEAN PLATELET VOLUME 9.8 fL (8.7-11.7); PLATELET CLUMPS FLAG 0 (0-99); PLATELET COUNT 144 10^3/uL (150-400); RED BLOOD CELL COUNT 3.39 10^6/uL (4.40-6.38); RED CELL DISTRIBUTION WIDTH 13.3 % (11.5-15.2)
[2017-07-23 04:41] LABS: INR 1.11 (0.83-1.16); PROTIME(PATIENT) 14.2 SEC (12.0-15.0)
[2017-07-23 05:13] LABS: ANION GAP 7 mEq/L (8-16); CALCIUM 8.3 mg/dL (8.5-10.4); CARBON DIOXIDE 24 mEq/l (22-31); CHLORIDE 105 mEq/L (97-110); CREATININE 1.5 mg/dL (0.7-1.3); GLOMERULAR FILTRATION RATE 45; GLUCOSE 80 mg/dL (70-100); POTASSIUM 4.5 mEq/L (3.5-5.2); SODIUM 136 mEq/L (134-144)
[2017-07-23 05:23] LABS: TROPONIN I 0.557 ng/mL (0.000-0.034)
[2017-07-23 05:25] LABS: CREATINE KINASE-MB FRACTION 3.94 ng/mL (0.00-3.19)
[2017-07-23 05:27] LABS: CK-MB INTERPRETATION POSITIVE (NEGATIVE)
[2017-07-23] MEDS ORDERED: LEVOTHYROXINE 50 MCG TAB PO SCH (06:00)
[2017-07-23] MEDS: ENOXAPARIN 80 MG/0.8 ML SYR SC SCH (08:30)
[2017-07-23] MEDS: CARVEDILOL 25 MG TAB PO SCH (08:31)
--- NOTE | 2017-07-23 08:40 | CPEKG ---
Heart Rate: 73 RR Interval: 822 P-R Interval: 204 QRSD Interval: 116 QT Interval: 424 QTC Interval: 468 P Disputanta: 25 QRS Disputanta: -8 T Wave Disputanta: 45 EKG Severity - ABNORMAL ECG - EKG Impression: SINUS RHYTHM EKG Impression: NONSPECIFIC INTRAVENTRICULAR CONDUCTION DELAY Electronically Signed By: Apolinar Grajeda 23-Jul-2017 08:55:31
[2017-07-23 08:43] VITALS: BP 140/76; PULSE 75; TEMP 97.2; O2SAT 95
[2017-07-23] MEDS ORDERED: glipiZIDE 10 MG TAB PO SCH (09:00)
[2017-07-23] MEDS ORDERED: ASPIRIN 81 MG CHEWABLE TAB PO SCH (09:00)
[2017-07-23] MEDS ORDERED: TORSEMIDE 20 MG TAB PO SCH (09:00)
[2017-07-23] MEDS ORDERED: AMIODARONE HCL 200 MG TAB PO SCH (09:00)
[2017-07-23] MEDS ORDERED: SPIRONOLACTONE 25 MG TAB PO SCH (09:00)
[2017-07-23] MEDS ORDERED: LOSARTAN POTASSIUM 50 MG TAB PO SCH (09:00)
--- NOTE | 2017-07-23 09:08 | ECHO ---
[id number] + + [id number] : : [place] [address] : : [phone] + + Adult Echocardiographic Report + ----+ :Name: PMAMarivelELIZABETHJONN RStudy Date: 07/23/2017 07:42 AM : : Hospital Admission Number: [id number] Location: 201: :: 1935 Gender: Male Height: 66 in : :Age: 81 yrs Race: WH Weight: 253 lb : :Reason For Study: Eval LV Fx : : BSA: 2.2 meters2 : :History: Post EP : + ----+ MMode/2D Measurements \T\ Calculations IVSd: 1.1 cm LVIDd: 4.4 cm FS: 30.6 % Ao root diam: 3.4 cm LVPWd: 1.4 cm LVIDs: 3.1 cm EDV(Teich): 89.9 ml ACS: 1.8 cm ESV(Teich): 37.5 ml EF(Teich): 58.3 % Normal Measurement Values: + + :LVIDd (3.5-5.7cm) IVSd (0.6-1.1cm) LVPWd (0.6-1.1cm) Aortic Root (2.0-3.7cm)Left Atrium (1.5-4.0cm): :LV Vol(d) (76-115ml) LV Vol(s) (29-48ml) Ejec Fraction (50-65%)PV Jaziel (0.6- 1.2m/s) TV Jaziel (0.4-1.0m/s) : :MV E Jaziel (0.8-1.0m/s)MV A Jaziel (0.3-1.0m/s)LVOT Jaziel (0.7-1.2m/s) Asc Ao Jaziel ( 0.9-1.8m/s) : + + Doppler Measurements \T\ Calculations MV E max jaziel: Ao V2 max: LV V1 max: PA V2 max: 108.6 cm/sec 97.7 cm/sec 72.1 cm/sec 80.1 cm/sec MV A max jaziel: Ao max PG: LV V1 max PG: PA max P.9 cm/sec 3.8 mmHg 2.1 mmHg 2.6 mmHg MV E/A: 1.3 LV V1 mean P.1 mmHg LV V1 mean: 46.6 cm/sec LV V1 VTI: 16.2 cm Left Ventricle The left ventricle is normal in size. There is normal left ventricular wall thickness. The left ventricular ejection fraction is normal. There is Doppler evidence for diastolic dysfunction. Ejection Fraction = 55-60%. No regional wall motion abnormalities noted. Right Ventricle The right ventricle is normal in size and function. Atria The left atrial size is normal. Right atrial size is normal. Mitral Valve The mitral valve is normal in structure and function. There is no mitral valve stenosis. There is no mitral regurgitation noted. Tricuspid Valve Normal tricuspid valve. No tricuspid regurgitation. Aortic Valve The aortic valve is normal in structure and function. There is no aortic stenosis. There is no aortic insufficiency. Pulmonic Valve The pulmonic valve is normal in structure and function. There is no pulmonic valvular regurgitation. Great Vessels The aortic root is normal size. Pericardium/Pleural There is no pericardial effusion. Conclusion A complete two-dimensional transthoracic echocardiogram was performed (2D, M-mode, Doppler and color flow Doppler). The left ventricular ejection fraction is normal. There is Doppler evidence for diastolic dysfunction. Ejection Fraction = 55-60%. The right ventricle is normal in size and function. The mitral valve is normal in structure and function. The aortic valve is normal in structure and function. There is no pericardial effusion. Final Reading Physician: Diego Merchant MD electronically signed on 07/23/2017 09:07 AM Ordering Physician: Diego Merchant Performed By: Osmar Dudley, CS
--- NOTE | 2017-07-24 03:25 | GDS ---
[f rep st] DISCHARGE SUMMARY DISCHARGE DIAGNOSES: 1. Atrial flutter status post ablation. 2. Paroxysmal atrial fibrillation. 3. Hypertension. 4. Diabetes. 5. Renal insufficiency. 6. Sleep apnea. BRIEF HISTORY: The patient is an 81-year-old man with recurrent atrial flutter with underlying nonischemic cardiomyopathy. He has also had atrial fibrillation seen clinically. He has a history of hypertension, diabetes, mild CAD that is nonobstructive by catheterization and chronic renal insufficiency. He is currently taking amiodarone and continues to have symptomatic atrial flutter. He is not a candidate for left atrial ablation due to his comorbidities, therefore we will continue to take amiodarone post atrial flutter. HOSPITAL COURSE: Dr. 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 There were no atrial arrhythmias inducible post ablation. Groin access was obtained only in the right femoral vein. He had done well overnight and is feeling well. He denies any chest pain, pressure, or tightness. He has no shortness of breath. He denies any pain at his groin site. TESTING DONE: Echocardiogram LV ejection fraction is 55% to 60%. There is evidence for diastolic dysfunction, and there is no pericardial effusion. EKG sinus rhythm without ST-T wave changes. LABORATORIES: WBC is 6.64, hemoglobin 11.1, hematocrit 33.4, platelets 144, PT 14.2, INR 1.1. Sodium is 136, potassium 4.5, chloride 105, bicarb 24, BUN 30, creatinine 1.5, magnesium is 2.4, that was on the 28th. CK is 50, CK-MB fraction is 3.94, CK-MB percent is 7.9. Troponin is 0.557 this is mildly elevated and to be expected post ablation. PHYSICAL EXAMINATION: VITAL SIGNS: Blood pressure is 125/65, pulse is 72, respirations 12, temperature is 36.7. GENERAL: He is alert and oriented, in no acute distress. Sitting up in the chair. CARDIAC: Regular rate and rhythm without murmur, rub, or gallop. LUNGS: Clear to auscultation. ABDOMEN: Obese and nontender. EXTREMITIES: There is +1 pitting ankle edema bilaterally. Right groin site is without bleeding, swelling, or ecchymosis. DISCHARGE INSTRUCTIONS: Post ablation activity restrictions were given verbally to patient, as well as written instructions including No lifting over 10 pounds or vigorous activity for 1 week. DISCHARGE MEDICATIONS: Please see discharge medication reconciliation. He is to continue all of his home medications. He will restart his Eliquis 2.5 mg this evening, because he did receive Lovenox shot this morning. FOLLOWUP: He has a followup with Dr. Merchant on 08/22 at 1:30. /[id number]/MODL MTDD
== END 2017-07-23 11:31 | disposition home or self-care (01) ==
LOC: FCATH 06:49 → F2W 11:22
PROVIDERS: ADMIT Internal Medicine Cardiovascular Disease; ATTEND Internal Medicine Cardiovascular Disease
PROC: 4A023FZ Measurement of Cardiac Rhythm, Percutaneous Approach (ICD-10-PCS; principal; 2017-07-22)
PROC: 02563ZZ Destruction of Right Atrium, Percutaneous Approach (ICD-10-PCS; principal; 2017-07-22)
CPT/HCPCS: 93005; 93306; J1644; J1650; J1815; J2001; J2370; J2704; J2720; J3010; J0461

== ENCOUNTER → 2017-08-22 | Outpatient (CLI) | payer OTHER | LOC: BHFA 13:30 | PROVIDERS: ATTEND Internal Medicine Cardiovascular Disease | DX: I25.10 Atherosclerotic heart disease of native coronary artery without angina pectoris (principal); I48.0 Paroxysmal atrial fibrillation; I48.3 Typical atrial flutter ==